=== PATIENT | female | born 1970 | race Caucasian/White ===

== ENCOUNTER 2016-07-27 19:17 | Inpatient (IN) | payer OTHER ==
[~2016-07-27] VITALS: Ht 165.1 cm; Wt 53.5 kg
[~2016-07-27 19:17] MED LIST: COREG3.125 MG PO; Gabapentin PO; KEPPRA500 MG PO; REQUIP XL6 MG PO; SEROQUEL100 MG PO; XANAX0.5 M1 PO
--- NOTE | 2016-07-27 19:17 | NUR ---
Patient was BIBA at this time.
[2016-07-27 19:26] VITALS: BP 104/70
--- NOTE | 2016-07-27 19:33 | NUR ---
Dr. Jean evaluating patient
--- NOTE | 2016-07-27 19:42 | NUR ---
PT [facility] BLS. TAKEN TO BED 8
--- NOTE | 2016-07-27 19:42 | NUR ---
PT IS 45/F BIBA TO ED WITH C/O 2 EPISODES OF TONIC CLONIC SEIZURE, FELL ON GROUND WITH NECK ABD BACK PAIN, NS 200MLS WAS GIVEN ENROUTE. PT STATES MED HX OF MS, SEIZURES, PACEMAKER. DENIES N/V/D; SKIN IS PINK/WARM/DRY; AAOX4 LUNGS CLEAR BL; HR EVEN AND REGULAR; PT DENIES ANY FEVER, CP, SOB, OR COUGH AT THIS TIME; PATIENT STATES PAIN OF 10/10 AT THIS TIME; VSS; PATIENT POSITIONED FOR COMFORT; HOB ELEVATED; BEDRAILS UP X2; BED DOWN. ER MD MADE AWARE OF PT STATUS.
--- NOTE | 2016-07-27 19:46 | NUR ---
Dr. Jean evaluating patient at bedside.
[2016-07-27] MEDS ORDERED: MORPHINE SULFATE 2 MG/ML SYR IVP ONE (19:55)
[2016-07-27] MEDS ORDERED: HYDROmorphone 1 MG/ML AMP IVP ONE ×2 (21:05→23:15)
--- NOTE | 2016-07-27 21:08 | NUR ---
PATIENT TAKEN OFF UNIT TO X-RAY. Addendum: 07/27/16 at [address] NOT X-RAY
--- NOTE | 2016-07-27 21:19 | NUR ---
PT RETURN FROM CT
--- NOTE | 2016-07-27 23:05 | NUR ---
PT RESTING IN BED. NO SOB NOTED. WILL CONTINUE TO MONITOR.
[2016-07-27] MEDS ORDERED: ONDANSETRON 4 MG/2 ML VIAL IVP PRN (23:50)
[2016-07-27] MEDS ORDERED: DOCUSATE SODIUM 100 MG GELCAP PO PRN (23:50)
[2016-07-27] MEDS ORDERED: ACETAMINOPHEN 325 MG TAB PO PRN (23:50)
[2016-07-27] MEDS ORDERED: MORPHINE SULFATE 2 MG/ML SYR IVP PRN (23:50)
[2016-07-27] MEDS ORDERED: ALPRAZolam 0.5 MG TAB PO PRN (23:55)
[2016-07-27] MEDS: CARVEDILOL 3.125 MG TAB PO SCH (23:55)
[2016-07-27] MEDS ORDERED: ROPINIROLE HCL 6 MG PO SCH (23:55)
[2016-07-27] MEDS ORDERED: POTASSIUM CHLORIDE 10 MEQ TABER PO SCH (23:55)
[2016-07-27] MEDS ORDERED: levETIRAcetam 500 MG TAB PO SCH (23:55)
[2016-07-27] MEDS ORDERED: LORazepam 2 MG/ML VIAL IVP PRN (23:55)
[2016-07-28] VITALS (7 sets, daily range): BP systolic 81–104; BP diastolic 50–72
[2016-07-28] MEDS ORDERED: HYDROmorphone 1 MG/ML AMP IVP PRN
--- NOTE | 2016-07-28 00:20 | NUR ---
Patient will be admitted to care of DR ABBOTT. Admited to TELE. Will go to room 120A. Belongings list completed. Report to WILLA GARCIA.
--- NOTE | 2016-07-28 00:30 | NUR ---
RECEIVED REPORT FROM ED RN FOR CONTINUITY OF CARE. 45 Y.O.FEMALE WITH DX: BREAKTHROUGH SEIZURES BROUGHT TO UNIT IN STABLE CONDITION. PATIENT IS A&OX4 BUT TIRED FALLS IN AND OUT OF SLEEP. NO S/S OF RESPIRATORY DISTRESS NOTED ON ROOM AIR. PATIENT DENIES PAIN AT THIS TIME. SHIFT ASSESSMENT DONE, VS TAKEN, STABLE. SKIN INTACT. WRISTBANDS APPLIED. IV TO LT FA PATENT AND FLUSHED. SAFETY/ FALL/SEIZURE PRECAUTIONS IMPLEMENTED. ORIENTED TO ROOM AND PLACED CALL LIGHT WITHIN REACH. WILL CONTINUE TO MONITOR.
[2016-07-28] MEDS ORDERED: QUEtiapine FUMARATE 100 MG TAB ONE (01:26)
--- NOTE | 2016-07-28 01:30 | NUR ---
PT DROWSY, EXPLAINED MEDICATIONS TO PATIENT ORDERED, UNABLE TO TAKE AT THIS TIME. PLACED CALL LIGHT WITHIN REACH. WILL CONTINUE TO MONITOR.
[2016-07-28] MEDS: QUEtiapine FUMARATE 100 MG TAB PO SCH ×2 (03:28→20:19)
--- NOTE | 2016-07-28 03:28 | NUR ---
PT AWAKE, ABLE TO TAKE MEDICATIONS, TOLERATED WELL. PT C/O PAIN, MEDICATED PER MD ORDER. VS STABLE, CALL LIGHT WITHIN REACH. WILL CONTINUE TO MONITOR.
[2016-07-28] MEDS: GABAPENTIN 300 MG CAP PO SCH ×3 (05:04→20:18)
--- NOTE | 2016-07-28 06:00 | NUR ---
PATIENT RESTING IN BED. NO S/S OF DISTRESS OR DISCOMFORT NOTED. WILL CONTINUE TO MONITOR.
--- NOTE | 2016-07-28 07:26 | NUR ---
ENDORSED PATIENT TO DAY RN FOR CONTINUITY OF CARE, PATIENT IS IN STABLE CONDITION.
--- NOTE | 2016-07-28 07:27 | NUR ---
RECEIVED PT IN BED. ASLEEP. AROUSABLE TO VOICE. ALERT ORIENTED X4. NO SOB NOTED AT THIS TIME. PT ON BEDREST. POSITIVE BOWEL SOUNDS NOTED ON FOUR QUADRANTS. SAFETY PRECAUTION IN PLACE. CALL LIGHT WITHIN REACH.
[2016-07-28] MEDS: CARVEDILOL 3.125 MG TAB PO SCH ×2 (08:56→20:03)
[2016-07-28] MEDS: levETIRAcetam 100 MG/ML ORASYR PO SCH ×2 (09:00→20:19)
[2016-07-28] MEDS ORDERED: rOPINIRole 1 MG TAB PO SCH (10:00)
--- NOTE | 2016-07-28 10:44 | NUR ---
DR MARTIN MADE AWARE OF PT COMPLAINT OF BACK PAIN, 09/09 BUT CHECKED BLOOD PRESSURE AT 89/52, SO PREVIOUSLY ORDERED MORPHINE NOT GIVEN DUE TO BLOOD PRESSURE MIGHT DROP SOME MORE. NEW ORDER FOR PAIN ORDERED BY AND CARRIED OUT. Addendum: 07/28/16 at 1046 by Neelam Liu RN ADDITIONAL BP 89/52, NV 65
[2016-07-28] MEDS: HYDROcodone/APAP 7.5/325 MG 1 TAB PO PRN (11:00)
[2016-07-28] MEDS: METHOCARBAMOL 500 MG TAB PO SCH ×3 (12:24→20:18)
[2016-07-28] MEDS: rOPINIRole 1 MG TAB PO SCH ×2 (12:26→16:47)
--- NOTE | 2016-07-28 13:00 | NUR ---
PT WANTED TO USE THE BEDPAN. ASSISTED PT IN USING THE BED STUBBS. PT COMPLAINED OF NOT BEING ABLE TO VOID. PALPATED BLADDER DISTENSION NOTED. SCANNED BLADDER AT [address] ENRIQUEZ AWARE. WITH ORDERS MADE AND CARRIED OUT. WENT TO SEE PT PER PT REQUEST.
--- NOTE | 2016-07-28 13:05 | NUR ---
MD CAME TO SEE PT. PT VERBALIZED PAIN SUBSIDING WITH NEW PO NORCO PRN FOR HER BACK AND NECK PAIN.
--- NOTE | 2016-07-28 16:00 | NUR ---
PT REQUESTED MD TO SEE HER. DR VAZQUEZ CAME TO SEE PT. PT COMPLAINED THAT THE NORCO WASN'T WORKING AND ASKED ABOUT HER CONDITION. MD LET PT KNOW OF HER LATEST FINDINGS AND THE RESULT OF HER KIDNEY AND BLADDER ULTRASOUND. MADE NEW ORDERS AND CARRIED OUT.
--- NOTE | 2016-07-28 18:19 | NUR ---
DR VAZQUEZ AWARE OR LATEST BLADDER AND KIDNEY ULTRASOUND REPORT, ALSO AWARE THAT PT DIDN'T HAVE BLADDER OUTPUT ON SHIFT. ENCOURAGED PT TO DRINK FLUIDS TOLERATED.
[2016-07-28] MEDS: KETOROLAC 15 MG/ML VIAL IVP PRN (18:27)
[2016-07-28] MEDS ORDERED: NACL 0.9% 1,000 ML IV SCH (19:00)
--- NOTE | 2016-07-28 19:31 | NUR ---
PT ASLEEP. AROUSABLE TO VOICE. NO SOB NOTED. RADIOLOGIST STAFF CAME TO SEE PT FOR THE XRAY ORDER. ENDORSED TO CONTACT WORKER FOR CONTINUITY OF CARE. PT ON STABLE CONDITION.
--- NOTE | 2016-07-28 19:32 | NUR ---
RECEIVED REPORT FROM DAY RN FOR CONTINUITY OF CARE. PATIENT IS A&OX4, DISCUSSED PLAN OF CARE WITH PATIENT ABLE TO VERBALIZE UNDERSTANDING, REINFORCEMENT NEEDED. SHIFT ASSESSMENT DONE, VS TAKEN, STABLE AT THIS TIME. NO S/S OF RESPIRATORY DISTRESS NOTED ON ROOM AIR. PATIENT DENIES PAIN AT THIS TIME. IV TO LT FA 22 GAUGE PATENT AND FLUSHED. ASSISTED PT TO BEDPAN BUT COULD NOT VOID. SAFETY/FALL PRECAUTIONS ENFORCED. CALL LIGHT WITHIN REACH. WILL CONTINUE TO MONITOR.
--- NOTE | 2016-07-28 19:36 | NUR ---
PATIENT TAKEN OFF UNIT TO XRAY, IN STABLE CONDITION.
--- NOTE | 2016-07-28 20:15 | NUR ---
PATIENT RETURNED, PROVIDED FOOD AND DRINK PER PT REQUEST.
--- NOTE | 2016-07-28 20:19 | NUR ---
DUE MEDICATIONS ADMINISTERED, TOLERATED WELL. PATIENT NOW RESTING IN BED. WILL CONTINUE TO MONITOR.
--- NOTE | 2016-07-28 22:00 | NUR ---
PATIENT HAD URGENCY TO URINATE, ASSISTED TO BEDPAN, 500 ML DARK YELLOW URINE NOTED. URINE SAMPLE COLLECTED AND SENT TO LAB. PATIENT PERFORMED SYDNEY CARE AND MADE COMFORTABLE. WILL CONTINUE TO MONITOR.
[2016-07-29] VITALS: BP 91/62
--- NOTE | 2016-07-29 | NUR ---
VS TAKEN. SAFETY PRECAUTIONS ENFORCED. CALL LIGHT WITHIN REACH, WILL CONTINUE TO MONITOR.
--- NOTE | 2016-07-29 01:49 | NUR ---
PT SLEEPING AT THIS TIME, PATIENT AWAKES EASILY. NO S/S OF DISTRESS NOTED, WILL CONTINUE TO MONITOR,
[2016-07-29] MEDS: KETOROLAC 15 MG/ML VIAL IVP PRN (03:17)
--- NOTE | 2016-07-29 03:17 | NUR ---
PT C/O PAIN, VS TAKEN, MEDICATED PER MD ORDER. ASSISTED PATIENT TO USE BEDPAN, 300 ML DARK YELLOW URINE NOTED. WILL CONTINUE TO MONITOR.
[2016-07-29 04:00] VITALS: BP 88/55
[2016-07-29] MEDS: GABAPENTIN 300 MG CAP PO SCH (05:31)
--- NOTE | 2016-07-29 06:00 | NUR ---
PATIENT RESTING IN BED, NO S/S OF DISTRESS OR DISCOMFORT NOTED. WILL CONTINUE TO MONITOR.
[2016-07-29] MEDS: HYDROcodone/APAP 7.5/325 MG 1 TAB PO PRN (06:42)
--- NOTE | 2016-07-29 06:42 | NUR ---
PT C/O PAIN, MEDICATED PER MD ORDER, VS STABLE. CALL LIGHT WITHIN REACH.
--- NOTE | 2016-07-29 07:20 | NUR ---
ENDORSED PATIENT TO DAY RN FOR CONTINUITY OF CARE, PATIENT IS IN STABLE CONDITION.
--- NOTE | 2016-07-29 07:27 | NUR ---
RECEIVED PT IN BED, AWAKE, ALERT, ORIENTED X4. NO SOB NOTED. DENIES ANY PAIN OR DISCOMFORT AT THIS TIME. ASSISTED PT CHANGING HER GOWN. PT WAS ABLE TO STAND AT BED SIDE WITH ASSIST. PT VERBALIZED SHE FEELS BETTER TODAY AND ABLE TO MOVE HER LEGS THAN YESTERDAY. POSITIVE BOWEL SOUNDS NOTED ON FOUR QUADRANTS. DENIES ANY PROBLEM WITH BOWEL OR BLADDER ELIMINATION AT THIS TIME. SAFETY PRECAUTION IN PLACE. CALL LIGHT WITHIN REACH.
[2016-07-29 08:00] VITALS: BP 83/48
--- NOTE | 2016-07-29 08:00 | NUR ---
DR. ABBOTT CAME TO SEE PT.
--- NOTE | 2016-07-29 08:39 | NUR ---
PT WANTS TO SIGN AMA. PT VERBALIZED THAT ITS HER SON'S BIRTHDAY AND SHE WANTED TO GO HOME NOW. MD MADE AWARE. PT SIGNED AMA FORM. ARMBAND REMOVED. IV CANNULA REMOVED AND INTACT. TELEBOX REMOVED. PT WALKED OUT OF THE HOSPITAL WITH CAREGIVER.
[2016-07-29] MEDS ORDERED: HYDROmorphone 1 MG/ML AMP IVP PRN (08:48)
[2016-07-29] MEDS ORDERED: MACROBID100 M1 PO (08:59)
[2016-07-29] MEDS ORDERED: METHOCARBAMOL 500 MG TAB PO SCH (09:00)
[2016-07-29] MEDS ORDERED: rOPINIRole 1 MG TAB PO SCH (09:00)
--- NOTE | 2016-07-30 10:04 | NUR ---
PER GIAN, CHIP PERSON FAX RETRO REVIEW TO [facility]. FAXED DISCHARGE SUMMARY, H&P AND ER REPORT TO [facility] AT [phone] PHONE [phone]
== END 2016-07-29 08:35 | disposition left against medical advice (07) | DRG 58 ==
LOC: MED 19:17 → MTU 23:50
PROVIDERS: ADMIT Family Medicine; ATTEND Family Medicine
DX: G35 Multiple sclerosis (principal); N17.0 Acute kidney failure with tubular necrosis; E43 Unspecified severe protein-calorie malnutrition; N39.0 Urinary tract infection, site not specified; Z68.1 Body mass index [BMI] 19.9 or less, adult; G40.909 Epilepsy, unspecified, not intractable, without status epilepticus; D50.9 Iron deficiency anemia, unspecified; F19.10 Other psychoactive substance abuse, uncomplicated; F41.9 Anxiety disorder, unspecified; Z53.29 Procedure and treatment not carried out because of patient's decision for other reasons; E83.51 Hypocalcemia; I25.10 Atherosclerotic heart disease of native coronary artery without angina pectoris; W18.39XA Other fall on same level, initial encounter; F17.210 Nicotine dependence, cigarettes, uncomplicated; Z53.21 Procedure and treatment not carried out due to patient leaving prior to being seen by health care provider; Z90.710 Acquired absence of both cervix and uterus; Z95.0 Presence of cardiac pacemaker; Z88.6 Allergy status to analgesic agent; Z79.899 Other long term (current) drug therapy; Z71.6 Tobacco abuse counseling; Y93.89 Activity, other specified; Y92.090 Kitchen in other non-institutional residence as the place of occurrence of the external cause; Y99.8 Other external cause status; Z83.3 Family history of diabetes mellitus; Z80.1 Family history of malignant neoplasm of trachea, bronchus and lung

== ENCOUNTER 2016-10-20 22:36 | Emergency (ER) | payer OTHER ==
[~2016-10-20] VITALS: Ht 167.6 cm; Wt 61.2 kg
[~2016-10-20 22:36] MED LIST changes: +ALPR0.5T2 PO; +CARV3.12 PO; -COREG3.125 MG PO; +KEP500 PO; -KEPPRA500 MG PO; +NITR100C7 PO; +QUET100T PO; -REQUIP XL6 MG PO; -SEROQUEL100 MG PO; -XANAX0.5 M1 PO; +[UNRECOGNIZED DRUG - CODE] PO
--- NOTE | 2016-10-20 22:48 | NUR ---
BIBA TO ER BED 4
[2016-10-20 23:00] VITALS: BP 93/65
[2016-10-20] MEDS ORDERED: HYDROcodone/APAP 5/325 MG 1 TAB TAB PO ONE (23:15)
[2016-10-20] MEDS ORDERED: LORazepam 1 MG TAB PO ONE (23:15)
--- NOTE | 2016-10-20 23:15 | NUR ---
PT. REFUSES CXR, ER MD MADE AWARE.
--- NOTE | 2016-10-20 23:15 | NUR ---
Patient being evaluated by physician at bedside.
--- NOTE | 2016-10-20 23:26 | NUR ---
45Y/F PT. PRESENT TO ED FOR PREBOOK. PT. STATES HAVING CHEST PAIN X 1 DAY. HX. MS, BRADYCARDIA STATES ON PACE MAKER, ANXIETY. AAO X4, UNABLE TO AMBULATE AT THIS TIME. RESPIRTAIONS ROOM AIR, EVEN AND UNLABORED. BL LUNGS CLEAR. SKIN WARM AND DRY/PINK. C/O CP 12/10. VSS, ER MADE AWARE OF PT. STAUS.
[2016-10-20 23:29] LABS: BASOPHILS # (AUTO) 0.3 K/uL (0.00-0.22); BASOPHILS % (AUTO) 3.2 % (0.0-2.0); EOSINOPHILS # (AUTO) 0.2 K/uL (0-0.4); EOSINOPHILS % (AUTO) 1.7 % (0.0-4.0); HEMATOCRIT 28.5 % (36-48); HEMOGLOBIN 8.8 g/dL (12.0-16.0); LYMPHOCYTES # (AUTO) 2.1 K/uL (2.5-16.5); LYMPHOCYTES % (AUTO) 22.8 % (20.5-51.1); MEAN CORPUSCULAR HEMOGLOBIN 23 pg (27-31); MEAN CORPUSCULAR HGB CONC 31 g/dL (33-37); MEAN CORPUSCULAR VOLUME 76 fL (80-94); MONOCYTES # (AUTO) 0.4 K/uL (0.8-1.0); MONOCYTES % (AUTO) 4.8 % (1.7-9.3); NEUTROPHILS # (AUTO) 6.2 K/uL (1.8-7.7); NEUTROPHILS % (AUTO) 67.5 % (42.2-75.2); PLATELET COUNT (AUTO) 280 K/uL (140-450); RED BLOOD CELL COUNT(AUTO) 3.75 MIL/uL (4.20-5.40); WHITE BLOOD COUNT (AUTO) 9.2 K/uL (4.8-10.8)
[2016-10-20 23:40] LABS: RED CELL DISTRIBUTION WIDTH 20.9 % (11.6-13.7)
[2016-10-20 23:47] LABS: ANION GAP 12.4 (8-16); CARBON DIOXIDE 24.9 mmol/L (21-32); CREATININE 0.9 mg/dL (0.6-1.3); POTASSIUM 3.3 mmol/L (3.5-5.1); TOTAL BILIRUBIN 0.2 mg/dL (0.0-1.0)
[2016-10-21] MEDS ORDERED: POTASSIUM CHLORIDE 20% 40 MEQ/15 ML UDC PO ONE (00:10)
--- NOTE | 2016-10-21 00:22 | NUR ---
Patient discharged with v/s stable. Written and verbal after care instructions given and explained. Patient verbalized understanding. Ambulatory with steady gait. All questions addressed prior to discharge. Advised to follow up with PMD.
--- NOTE | 2016-10-21 00:22 | NUR ---
PATIENT BIB [employer]. PATIENT EXAMINED BY DR. NROMAN. PATIENT MEDICALLY CLEARED AND RELEASED IN CUSTODY IN STABLE CONDITION. ORIGINAL PRE-BOOK FORM GIVEN TO OFFICER Francesca LEARY.
[2016-10-21 00:23] VITALS: BP 100/60
== END 2016-10-21 00:23 ==
LOC: MED 22:36
DX: Z02.89 Encounter for other administrative examinations (principal); E87.6 Hypokalemia; Z88.8 Allergy status to other drugs, medicaments and biological substances; Z79.899 Other long term (current) drug therapy; Z95.0 Presence of cardiac pacemaker
CPT/HCPCS: 36415; 80053; 81002; 81025; 83880; 84484; 85025; 93005; 99285; G0482

== ENCOUNTER 2017-05-15 18:58 | Inpatient (IN) | payer OTHER ==
[~2017-05-15] VITALS: Ht 152.4 cm; Wt 63.0 kg
[~2017-05-15 18:58] MED LIST changes: -NITR100C7 PO
[2017-05-15 19:01] VITALS: BP 118/79
--- NOTE | 2017-05-15 19:17 | NUR ---
PATIENT BIBA TO BED 4.
--- NOTE | 2017-05-15 20:14 | NUR ---
46 Y/F PT. BIB EMS FROM HOME FOR SEIZURE AND THEN ONSET OF CHEST PAIN. AWAKE AND ALERT ON ARRIVAL. HX. MS, SEIZURE, ON PACE MAKER. AAOX 4, UNABLE TO AMBULATE DUE TO MS, PT. STATES USE WALKER AT HOME. REPSIRTAIONS ROOM AIR, EVEN AND UNLABORED. SKIN WARM AND DRY. C/O CP AND BODY PAIN 11/10. VSS, ER MADE AWARE OF PT. STATUS.
[2017-05-15 21:05] LABS: BASOPHILS # (AUTO) 0.3 K/uL (0.00-0.22); BASOPHILS % (AUTO) 2.3 % (0.0-2.0); EOSINOPHILS # (AUTO) 0.1 K/uL (0-0.4); EOSINOPHILS % (AUTO) 0.9 % (0.0-4.0); HEMATOCRIT 29.5 % (36-48); HEMOGLOBIN 9.7 g/dL (12.0-16.0); LYMPHOCYTES # (AUTO) 2.4 K/uL (2.5-16.5); MEAN CORPUSCULAR HEMOGLOBIN 24 pg (27-31); MEAN CORPUSCULAR HGB CONC 33 g/dL (33-37); MEAN CORPUSCULAR VOLUME 73 fL (80-94); MONOCYTES # (AUTO) 0.7 K/uL (0.8-1.0); MONOCYTES % (AUTO) 5.9 % (1.7-9.3); NEUTROPHILS # (AUTO) 8.2 K/uL (1.8-7.7); NEUTROPHILS % (AUTO) 69.9 % (42.2-75.2); PLATELET COUNT (AUTO) 221 K/uL (140-450); RED BLOOD CELL COUNT(AUTO) 4.05 MIL/uL (4.20-5.40); RED CELL DISTRIBUTION WIDTH 19.3 % (11.6-13.7); WHITE BLOOD COUNT (AUTO) 11.7 K/uL (4.8-10.8)
[2017-05-15 21:19] LABS: ANION GAP 14.2 (8-16); CARBON DIOXIDE 22.1 mmol/L (21-32); CREATININE 0.7 mg/dL (0.6-1.3); POTASSIUM 3.3 mmol/L (3.5-5.1)
[2017-05-15 21:24] LABS: ALBUMIN 2.9 g/dL (3.4-5.0); TOTAL BILIRUBIN 0.3 mg/dL (0.0-1.0)
[2017-05-15] MEDS ORDERED: MORPHINE SULFATE 4 MG/ML SYR IVP ONE (21:40)
--- NOTE | 2017-05-15 22:01 | NUR ---
IV 20GA RT HAND DONE, IVP PAIN MEDS GIVEN-NADR
[2017-05-15] MEDS ORDERED: ONDANSETRON 4 MG/2 ML VIAL IVP PRN (22:05)
[2017-05-15] MEDS ORDERED: MORPHINE SULFATE 2 MG/ML SYR IVP PRN (22:05)
[2017-05-15] MEDS ORDERED: LORazepam 2 MG/ML VIAL IVP PRN (22:05)
[2017-05-15] MEDS ORDERED: ACETAMINOPHEN 325 MG TAB PO PRN (22:05)
[2017-05-15 22:55] VITALS: BP 90/43
--- NOTE | 2017-05-15 22:55 | NUR ---
ADMITTED A 46F FROM ER. CAME BY KARISSA DUE TO CHEST PAIN AND BODY PAIN. HAD EPISODE OF SEIZURE AT HOME . AWAKE ,ALERT AND ORIENTED X4. ON TELE MONITOR. HAS PACEMAKER. BEDREST. WITH HL ON THE RT HAND #20. CLEAR AND PATENT. HAS GENERALIZED WEAKNESS. AT HOME AMBULATE WITH WALKER. SKIN ASSESSMENT DONE. INTACT EXCEPT WITH OLD SCRATCHES/SCABS ON BILATERAL LOWER LEG. SIDE RAILS ARE PADDED FOR SEIZURE PRECAUTIONS. ORIENTED TO HOSPITAL ROUTINES. BED ON LOW POSITION. FREQUENT ROUNDS NEEDED. CALL LIGHT PLACED WITHIN EASY REACH. PT HAS HISTORY OF MDRO ON URINE. INITIATE CONTACT ISOLATION . WILL FOLLOW UP ADMIT ORDER.
--- NOTE | 2017-05-16 01:00 | NUR ---
PT ASLEEP. NO S/S OF ANY DISTRESS NOR DISCOMFORT NOTED. WILL CONTINUE TO MONITOR.
[2017-05-16 04:03] VITALS: BP 93/50
[2017-05-16] MEDS: HYDROcodone/APAP 5/325 MG 1 TAB TAB PO PRN ×5 (04:12→23:45)
--- NOTE | 2017-05-16 04:12 | NUR ---
AWAKE. C/O PAIN ON THE LOWER BACK. MEDICATED WITH NORCO. ALSO VOIDED IN BEDPAN.
--- NOTE | 2017-05-16 04:15 | NUR ---
PT REQUESTED FRO SOME SANDWICH. ONLY FINISHED A LITTLE BIT.
--- NOTE | 2017-05-16 06:32 | NUR ---
PATIENT HAS BEEN SCREENED AND CATEGORIZED MODERATE NUTRITION RISK. PATIENT WILL BE SEEN WITHIN 3-5 DAYS OF ADMISSION. 05/17/17-05/19/17 BRIAN LEWIS MS, RDN
[2017-05-16 06:51] LABS: BASOPHILS # (AUTO) 0.3 K/uL (0.00-0.22); BASOPHILS % (AUTO) 4.9 % (0.0-2.0); EOSINOPHILS # (AUTO) 0.3 K/uL (0-0.4); EOSINOPHILS % (AUTO) 4.9 % (0.0-4.0); HEMOGLOBIN 9.4 g/dL (12.0-16.0); LYMPHOCYTES # (AUTO) 2.2 K/uL (2.5-16.5); LYMPHOCYTES % (AUTO) 35.9 % (20.5-51.1); MEAN CORPUSCULAR HEMOGLOBIN 24 pg (27-31); MEAN CORPUSCULAR HGB CONC 32 g/dL (33-37); MEAN CORPUSCULAR VOLUME 76 fL (80-94); MONOCYTES # (AUTO) 0.5 K/uL (0.8-1.0); MONOCYTES % (AUTO) 8.5 % (1.7-9.3); NEUTROPHILS # (AUTO) 2.8 K/uL (1.8-7.7); NEUTROPHILS % (AUTO) 45.8 % (42.2-75.2); PLATELET COUNT (AUTO) 211 K/uL (140-450); RED BLOOD CELL COUNT(AUTO) 3.93 MIL/uL (4.20-5.40); WHITE BLOOD COUNT (AUTO) 6.1 K/uL (4.8-10.8)
--- NOTE | 2017-05-16 07:10 | NUR ---
NO SEIZURE ACTIVITY NOTED DURING THE NIGHT. ENDORSED PT IN STABLE TO AM NURSE.
[2017-05-16 07:12] LABS: ANION GAP 11.7 (8-16); CARBON DIOXIDE 24.8 mmol/L (21-32); CREATININE 0.7 mg/dL (0.6-1.3); POTASSIUM 3.5 mmol/L (3.5-5.1)
[2017-05-16 07:14] LABS: MAGNESIUM 1.7 mg/dL (1.8-2.4); PHOSPHORUS 3.9 mg/dL (2.5-4.9)
--- NOTE | 2017-05-16 07:30 | NUR ---
RECEIVED PT ON BED AAOX4. NO SOB NOTED. NO C/O PAIN AT THIS TIME. IV TO RT HAND PATENT AND INTACT. CHEST CLEAR, ABDOMEN SOFT, BOWEL SOUNDS PRESENT. NO EDEMA NOTED. INSTRUCTED PT TO CALL FOR ASSISTANCE, CALL LIGHT WITHIN REACH, PT VERBALIZED UNDERSTANDING.
[2017-05-16 08:00] VITALS: BP 94/52
[2017-05-16 08:14] LABS: CREATINE KINASE MB 0.3 ng/mL (0-3.6)
[2017-05-16] MEDS ORDERED: ROPINIROLE HCL 6 MG PO SCH (09:00)
[2017-05-16] MEDS: GABAPENTIN 300 MG CAP PO SCH ×3 (09:12→18:12)
[2017-05-16] MEDS: levETIRAcetam 500 MG TAB PO SCH ×2 (09:12→20:34)
[2017-05-16] MEDS ORDERED: rOPINIRole 1 MG TAB PO SCH (11:12)
--- NOTE | 2017-05-16 11:46 | NUR ---
PATRICK NOTE PER REIMBURSEMENT ANALYST GIAN, REVIEWS SHOULD ONLY BE SENT TO [facility]. RECEIVED CALL FROM [facility] PATRICK PARISI PH# [phone] AND SHE SAID TO FAX REVIEW TO [phone]. PATRICK PARISI ALSO STATED THAT THEIR WEEKEND COVERAGE IS # [phone] FAX# [phone]. INITIAL REVIEW FAXED TO [facility] [phone] ATTN: PATRICK PARISI PH# [phone].
[2017-05-16 12:00] VITALS: BP 93/53
--- NOTE | 2017-05-16 15:30 | NUR ---
PT SEEN BY Abdulaziz SMITH WITH NEW ORDERS.
[2017-05-16 16:00] VITALS: BP 91/56
[2017-05-16 16:42] LABS: CREATINE KINASE MB 0.3 ng/mL (0-3.6)
[2017-05-16] MEDS ORDERED: MAG SULF 2000 MG/WATER PREMIX 50 ML IV SCH (18:00)
--- NOTE | 2017-05-16 18:00 | NUR ---
PT SEEN BY DR. CLEMENT WITH NEW ORDERS.
--- NOTE | 2017-05-16 18:10 | NUR ---
PT ACCIDENTALLY PULLED OUT PRESET IV. RESTARTED A NEW LINE ON LEFT HAND WITH GAUGE 22.
[2017-05-16] MEDS: clonazePAM 0.5 MG TAB PO PRN (18:13)
[2017-05-16] MEDS ORDERED: VALPROATE SODIUM 1,000 MG in NACL 0.9% 100 ML IV SCH (18:30)
--- NOTE | 2017-05-16 19:00 | NUR ---
DEPACON IVPB NOT GIVEN YET, MAG RIDER STILL ON GOING. PT AWAKE. NO SOB NOTED. NO COMPLAINTS MADE. WILL ENDORSE TO NEXT SHIFT NURSE FOR CONTINUITY OF CARE.
--- NOTE | 2017-05-16 19:25 | NUR ---
RECEIVED REPORT FROM DAY SHIFT NURSE. AAOX4. IV TO LEFT HAND #22G, PATENT AND INTACT. NO C/O PAIN AT THIS TIME. PT ON ROOM AIR. DISCUSSED PLAN OF CARE, PT VERBALIZED UNDERSTANDING. SAFETY PRECAUTION IN PLACE. CALL LIGHT WITHIN REACH.
[2017-05-16 20:00] VITALS: BP 86/45
[2017-05-16] MEDS ORDERED: NACL 0.9% 250 ML IV ONE ×2 (20:10→21:45)
--- NOTE | 2017-05-16 20:10 | NUR ---
DR. Polina MELENDEZ IS HERE TO SEE PT. BP 86/45. DR. MELENDEZ ORDERED NS 250 ML BOLUS. MD ORDERED TO GIVE ANOTHER NS 250 ML BOLUS IF BP STILL LOW. ORDER NOTED AND WILL CARRY OUT.
[2017-05-16] MEDS ORDERED: QUEtiapine FUMARATE 100 MG TAB PO SCH (21:00)
--- NOTE | 2017-05-16 21:45 | NUR ---
PT'S BP 89/51, HR 62. NO DISTRESS NOTED. WILL GIVE ANOTHER NS 250ML BOLUS ORDERED.
--- NOTE | 2017-05-16 22:09 | NUR ---
LEFT A VOICE MESSAGE FOR ROBERT, PT'S CAREGIVER TO INFORM HER THAT PT WILL BE DISCHARGED TOMORROW AT 0600.
[2017-05-16 22:50] VITALS: BP 92/53
--- NOTE | 2017-05-16 22:50 | NUR ---
PT'S BP 92/53. CALLED DR. Polina MELENDEZ. STATED BP IS OKAY. MD ORDERED TO GIVE NS 250ML BOLUS IF SBP<90.
[2017-05-17] VITALS: BP 114/71
--- NOTE | 2017-05-17 00:25 | NUR ---
SEEN PATIENT SLEEPING ON BED. PATIENT EASILY AROUSABLE. BED IN LOW POSITION, CALL LIGHTS WITHIN REACH. NO S/S OF DISTRESS NOTED AT THIS TIME.
--- NOTE | 2017-05-17 02:25 | NUR ---
SEEN PATIENT ASLEEP ON BED. PATIENT EASILY AROUSABLE. BED IN LOW POSITION, CALL LIGHTS WITHIN REACH. NO S/S DISTRESS NOTED AT HIS TIME.
[2017-05-17 04:00] VITALS: BP 91/51
--- NOTE | 2017-05-17 04:15 | NUR ---
PT SLEEPING BUT EASILY AROUSABLE. NO SEIZURE ACTIVITY NOTED. NO S/S O OF PAIN. SEIZURE AND SAFETY PRECAUTION IN PLACE. CALL LIGHT WITHIN REACH.
[2017-05-17] MEDS: clonazePAM 0.5 MG TAB PO PRN (06:19)
[2017-05-17] MEDS: HYDROcodone/APAP 5/325 MG 1 TAB TAB PO PRN (06:19)
[2017-05-17 06:20] LABS: BASOPHILS # (AUTO) 0.2 K/uL (0.00-0.22); BASOPHILS % (AUTO) 4.1 % (0.0-2.0); EOSINOPHILS # (AUTO) 0.2 K/uL (0-0.4); EOSINOPHILS % (AUTO) 4.2 % (0.0-4.0); HEMATOCRIT 31.4 % (36-48); HEMOGLOBIN 9.7 g/dL (12.0-16.0); LYMPHOCYTES % (AUTO) 35.2 % (20.5-51.1); MEAN CORPUSCULAR HEMOGLOBIN 24 pg (27-31); MEAN CORPUSCULAR HGB CONC 31 g/dL (33-37); MEAN CORPUSCULAR VOLUME 76 fL (80-94); MONOCYTES # (AUTO) 0.3 K/uL (0.8-1.0); MONOCYTES % (AUTO) 5.6 % (1.7-9.3); NEUTROPHILS # (AUTO) 2.9 K/uL (1.8-7.7); NEUTROPHILS % (AUTO) 50.9 % (42.2-75.2); PLATELET COUNT (AUTO) 224 K/uL (140-450); RED BLOOD CELL COUNT(AUTO) 4.11 MIL/uL (4.20-5.40); RED CELL DISTRIBUTION WIDTH 20.5 % (11.6-13.7); WHITE BLOOD COUNT (AUTO) 5.6 K/uL (4.8-10.8)
--- NOTE | 2017-05-17 06:21 | NUR ---
PT C/O BACK PAIN 5/10 PAIN SCALE. PT ALSO STATED SHE'S ANXIOUS. NORCO 5/325 MG TAB PO FOR PAIN AND KLONOPIN 1 MG PO FOR ANXIETY GIVEN ORDERED.
--- NOTE | 2017-05-17 06:28 | NUR ---
SPOKE WITH ROBERT, PT'S CAREGIVER. SHE STATED THAT SHE'S COMING IN 45 MINS TO BLASTING CONTRACT MINER PT. PT MADE AWARE.
[2017-05-17 06:56] LABS: ANION GAP 11.1 (8-16); CARBON DIOXIDE 23.9 mmol/L (21-32); CREATININE 0.7 mg/dL (0.6-1.3)
--- NOTE | 2017-05-17 07:10 | NUR ---
PT'S BEVELER IS HERE TO COOKING INSTRUCTOR PT. DC PAPERS SIGNED BY PT AND WAS GIVEN A COPY. IV LINE, TELE MONITOR AND ARM BAND REMOVED. PT REFUSED TO BE WHEELED OUT TO THE LOBBY. PT STATED SHE WILL JUST WALK WITH HER CAREGIVER. NO C/O PAIN. NO DISTRESS NOTED. PT IN STABLE CONDITION.
[2017-05-17] MEDS ORDERED: rOPINIRole 1 MG TAB PO SCH (09:00)
[2017-05-17] MEDS ORDERED: DIVALPROEX 500 MG TABEC PO SCH (09:00)
--- NOTE | 2017-05-22 15:18 | NUR ---
PATRICK NOTE PATRICK NICE RECEIVE VM FROM [facility] OF [facility] PH# [phone] REQUESTING FOR CLINICAL UPDATE ON ADMISSION. H&P, CONSULT AND DISCHARGE INSTRUCTIONS FAXED TO [facility] [phone] ATTN: PATRICK LOBO PH# [phone]
== END 2017-05-17 07:10 | disposition home or self-care (01) | DRG 206 ==
LOC: MED 18:58 → MMU 22:29
PROVIDERS: ADMIT Preventive Medicine Preventive Medicine/Occupational Environmental Medicine; ATTEND Preventive Medicine Preventive Medicine/Occupational Environmental Medicine
DX: M94.0 Chondrocostal junction syndrome [Tietze] (principal); E44.0 Moderate protein-calorie malnutrition; G35 Multiple sclerosis; G40.909 Epilepsy, unspecified, not intractable, without status epilepticus; F17.210 Nicotine dependence, cigarettes, uncomplicated; Z88.6 Allergy status to analgesic agent; Z95.0 Presence of cardiac pacemaker; I25.10 Atherosclerotic heart disease of native coronary artery without angina pectoris; Z83.3 Family history of diabetes mellitus; Z80.1 Family history of malignant neoplasm of trachea, bronchus and lung
CPT/HCPCS: 36415; 71045; 80048; 80053; 82550; 82553; 83735; 83880; 84100; 84484; 85025; 87081; 93005; 96374; 99285; J2270; J3475; J3490; J7030; Q0092

== ENCOUNTER 2017-05-29 13:00 | Observation (INO) | payer OTHER ==
[~2017-05-29] VITALS: Ht 152.4 cm; Wt 62.3 kg
[2017-05-29] MEDS ORDERED: AMMONIA AROMATIC 1 INHL INH ONE (13:01)
[2017-05-29 13:06] VITALS: BP 123/71
[2017-05-29] MEDS ORDERED: LORazepam 2 MG/ML VIAL IVP ONE ×2 (13:10→15:45)
[2017-05-29] MEDS ORDERED: NACL 0.9% 1,000 ML IV ONE (13:10)
[2017-05-29] MEDS ORDERED: LORazepam 2 MG/ML VIAL ONE (13:12)
--- NOTE | 2017-05-29 13:16 | NUR ---
PT. EXPERIENCED SEIZURE THAT STARTED AT 1310; GIVEN 1MG ATIVAN , WASTED 1MG/0.5ML . Addendum: 05/29/17 at 1340 by MEDMCKAY WASTED WITH WILLA SUMNER
[2017-05-29] MEDS ORDERED: KETOROLAC 30 MG/ML VIAL IVP ONE (13:20)
[2017-05-29] MEDS ORDERED: ROPI0.5T PO (13:21)
[2017-05-29] MEDS ORDERED: NAPR-54 PO (13:21)
[2017-05-29] MEDS ORDERED: QUET400T PO (13:21)
[2017-05-29] MEDS ORDERED: ESOM40EC PO (13:21)
[2017-05-29] MEDS ORDERED: LEVE1000 PO (13:21)
[2017-05-29] MEDS ORDERED: TOR15I PO (13:21)
[2017-05-29] MEDS ORDERED: FERR325E14 PO (13:21)
[2017-05-29] MEDS ORDERED: CLON1TAB1 PO (13:21)
[2017-05-29] MEDS ORDERED: LACO50TA PO (13:21)
--- NOTE | 2017-05-29 13:40 | NUR ---
PT. EXPERIENCED A SEIZURE AT 1334 WHICH LASTED ONE MINUTE. VSS, PT RESPONSIVE AND DR. CABAN NOTIFIED.
[2017-05-29 13:51] LABS: BASOPHILS # (AUTO) 0.2 K/uL (0.00-0.22); EOSINOPHILS # (AUTO) 0.2 K/uL (0-0.4); EOSINOPHILS % (AUTO) 2.9 % (0.0-4.0); HEMATOCRIT 29.4 % (36-48); HEMOGLOBIN 9.3 g/dL (12.0-16.0); LYMPHOCYTES % (AUTO) 33.3 % (20.5-51.1); MEAN CORPUSCULAR HEMOGLOBIN 24 pg (27-31); MEAN CORPUSCULAR HGB CONC 32 g/dL (33-37); MEAN CORPUSCULAR VOLUME 75.9 fL (80-94); MONOCYTES # (AUTO) 0.4 K/uL (0.8-1.0); MONOCYTES % (AUTO) 6.2 % (1.7-9.3); NEUTROPHILS # (AUTO) 3.1 K/uL (1.8-7.7); NEUTROPHILS % (AUTO) 53.6 % (42.2-75.2); PLATELET COUNT (AUTO) 339 K/uL (140-450); RED BLOOD CELL COUNT(AUTO) 3.87 MIL/uL (4.20-5.40); RED CELL DISTRIBUTION WIDTH 19.6 % (11.6-13.7); WHITE BLOOD COUNT (AUTO) 5.9 K/uL (4.8-10.8)
[2017-05-29] MEDS ORDERED: MORPHINE SULFATE 4 MG/ML SYR IVP ONE (14:30)
[2017-05-29 14:35] LABS: APPEARANCE,URINE CLEAR (CLEAR); BILIRUBIN,URINE NEGATIVE (NEGATIVE); BLOOD, URINE NEGATIVE (NEGATIVE); LEUKOCYTE ESTERASE ,URINE NEGATIVE (NEGATIVE); NITRITE, URINE NEGATIVE (NEGATIVE); UGLUCOSE NEGATIVE (NEGATIVE)
[2017-05-29 14:37] LABS: COLOR,URINE STRAW (YELLOW)
[2017-05-29] MEDS ORDERED: MORPHINE SULFATE 2 MG/ML SYR ONE (14:40)
--- NOTE | 2017-05-29 14:42 | NUR ---
1441- PT. SUFFERED FROM SEIZURE, PER DR. TAE BOSTON, AND 1MG OF ATIVAN WAS ADMINISTERED. SEIZURE CEASED AT 1442.
[2017-05-29 15:09] LABS: ANION GAP 10.7 (8-16); CARBON DIOXIDE 25.6 mmol/L (21-32); CREATININE 0.8 mg/dL (0.6-1.3); POTASSIUM 4.3 mmol/L (3.5-5.1)
[2017-05-29 15:14] LABS: ALBUMIN 2.8 g/dL (3.4-5.0); TOTAL BILIRUBIN 0.1 mg/dL (0.0-1.0)
--- NOTE | 2017-05-29 15:49 | NUR ---
PT. TAKEN FOR CT SCAN BY KRISTIN.
[2017-05-29 15:53] LABS: BARBITURATE, URINE NEG. ng/ml (NEG <=200); BENZODIAZEPINE, URINE NEG. ng/mL (NEG <=200); CANNABINOID, URINE POS. ng/mL (NEG <=50); COCAINE, URINE NEG. ng/mL (NEG <=300); OPIATE, URINE NEG. ng/mL (NEG <=2000); PHENCYCLIDINE SCREEN,URINE NEG. ng/mL (NEG <=25)
--- NOTE | 2017-05-29 15:59 | NUR ---
PT. WAS BROUGHT BACK TO BED [address] SCAN BY KRISTIN.
[2017-05-29] MEDS ORDERED: NACL 0.9% 1,000 ML IV SCH (16:14)
[2017-05-29] MEDS ORDERED: ACETAMINOPHEN 325 MG TAB PO PRN (16:15)
[2017-05-29] MEDS ORDERED: ONDANSETRON 4 MG/2 ML VIAL IM/IVP PRN (16:15)
[2017-05-29] MEDS ORDERED: DOCUSATE SODIUM 100 MG GELCAP PO PRN (16:15)
[2017-05-29] MEDS ORDERED: KETOROLAC 15 MG/ML VIAL IVP PRN (16:15)
[2017-05-29] MEDS ORDERED: CARVEDILOL 3.125 MG TAB PO PRN (16:15)
[2017-05-29] MEDS ORDERED: CLONAZEPAM 1 MG PO SCH (16:15)
[2017-05-29] MEDS ORDERED: ALPRAZolam 0.5 MG TAB PO PRN (16:15)
[2017-05-29] MEDS ORDERED: NAPROXEN 500 MG TAB PO SCH (16:15)
[2017-05-29] MEDS ORDERED: MORPHINE SULFATE 2 MG/ML SYR IVP PRN ×2 (16:15→18:00)
[2017-05-29] MEDS ORDERED: levETIRAcetam 1,000 MG in NACL 0.9% 100 ML IV ONE (16:40)
--- NOTE | 2017-05-29 16:55 | NUR ---
Patient will be admitted to care of DR PEÑA. Admited to TELE. Will go to room 112A. Belongings list completed. Report to WILLA YI
[2017-05-29] MEDS ORDERED: FERROUS SULFATE 325 MG TABEC PO SCH (17:00)
--- NOTE | 2017-05-29 17:00 | NUR ---
PATIENT ARRIVED ON UNIT VIA GURNEY FROM ER. RECEIVED REPORT FROM ER NURSE SUMAN. PATIENT ALERT AND ABLE TO VERBALIZE NEEDS. NO NOTED DELAYS RESPONDING APPROPRIATELY TO QUESTIONS. PERRLA 3MM. PATIENT WITH 22G TO RIGHT HAND. PATIENT VERBALIZING IT IS BOTHERING HER AND DOES NOT WANT IT TO BE USED. WILL CHANGES IV SITE. SKIN INTACT. LUNG SOUNDS CLEAR BOWEL SOUNDS ACTIVE. TELEMONITOR ATTACHED. DISCUSSED PLAN OF CARE WITH PATIENT AT BEDSIDE. DR DUGGAN TO BE IN LATER TO SEE PATIENT. SEIZURE AND FALL PRECAUTIONS IMPLEMENTED. CALL LIGHT WITHIN REACH. WILL CONT TO MONITOR.
[2017-05-29 17:02] LABS: BARBITURATE, URINE NEG. ng/ml (NEG <=200); BENZODIAZEPINE, URINE NEG. ng/mL (NEG <=200); CANNABINOID, URINE POS. ng/mL (NEG <=50); COCAINE, URINE NEG. ng/mL (NEG <=300); OPIATE, URINE NEG. ng/mL (NEG <=2000); PHENCYCLIDINE SCREEN,URINE NEG. ng/mL (NEG <=25)
[2017-05-29 17:08] LABS: PROTHROMBIN TIME 10.5 secs (10.8-13.4)
[2017-05-29 17:10] LABS: FREE T4 (FREE THYROXINE) 0.62 ng/dL (0.76-1.46); MAGNESIUM 1.8 mg/dL (1.8-2.4); PHOSPHORUS 3.2 mg/dL (2.5-4.9); THYROID STIMULATING HORMONE 0.7 uIU/mL (0.34-3.74)
[2017-05-29] MEDS ORDERED: LORazepam 2 MG/ML VIAL IVP PRN (17:15)
[2017-05-29] MEDS ORDERED: KETOROLAC 30 MG/ML VIAL IVP PRN (17:15)
--- NOTE | 2017-05-29 17:45 | NUR ---
STARTED NEW IV LINE AND DC OLD IV SITE TO RIGHT HAND. NEW IV SITE TO LEFT HAND 22G PATENT AND INTACT WITH IV FLUIDS OF NS @60ML/HR INFUSING. PATIENT HAD 2 SEIZURES SINCE ADMISSION TO [facility] PATIENT O2 SAY REMAINED 95% DURING SEIZURE ON ROOM AIR. PATIENT ABLE TO DIRECT EYES TO PERSON TALKING TO HER DURING SEIZURE AND HAVE SPEECH DELAY WHEN RESPONDING TO QUESTIONS. SLIGHT TREMORS TO ENTIRE BODY. LASTED APPROX 30 SECONDS. ONCE IT PASSED PATIENT ABLE TO COMMUNICATE EFFECTIVELY WITHOUT DELAY. WILL CONT TO MONITOR PT.
[2017-05-29] MEDS ORDERED: clonazePAM 0.5 MG TAB PO PRN (17:50)
[2017-05-29 18:00] VITALS: BP 109/66
--- NOTE | 2017-05-29 19:15 | NUR ---
ENDORSED REPORT TO VEHICLE PAINTER NURSE AT BEDSIDE FOR CONTINUITY OF CARE. PATIENT STABLE.
--- NOTE | 2017-05-29 19:30 | NUR ---
RECEIVED PT IN STABLE CONDITION FROM AM NURSE. AWAKE,ALERT AND ORIENTED X4. BEDREST. ON TELE MONITOR SR. SIDE RAILS ARE PADDED FOR SEIZURE PRECAUTION. SKIN INTACT. WITH IVF INFUSING WELL ON THE LT FA #20. CLEAR AND PATENT. HAS HL ON RT HAND #18. PLAN OF CARE DISCUSSED AND VERBALIZED UNDERSTANDING. BED ON LOW POSITION . FREQUENT ROUNDS NEEDED. CALL LIGHT PLACED WITHIN EASY REACH. WILL CONTINUE TO MONITOR.
[2017-05-29 20:00] VITALS: BP 96/51
[2017-05-29] MEDS: GABAPENTIN 300 MG CAP PO SCH (20:39)
[2017-05-29] MEDS: HYDROcodone/APAP 7.5/325 MG 1 TAB PO PRN (20:41)
[2017-05-29] MEDS ORDERED: rOPINIRole 0.25 MG TAB PO SCH (21:00)
[2017-05-29] MEDS ORDERED: CARVEDILOL 3.125 MG TAB PO SCH (21:00)
[2017-05-29] MEDS ORDERED: QUEtiapine FUMARATE 100 MG TAB PO SCH (21:00)
[2017-05-29] MEDS ORDERED: LACOSAMIDE 50 MG PO SCH (21:00)
[2017-05-29] MEDS ORDERED: levETIRAcetam 500 MG TAB PO SCH (21:00)
[2017-05-29] MEDS ORDERED: GABAPENTIN NEURONTIN PO SCH (21:00)
[2017-05-29] MEDS ORDERED: levETIRAcetam 1,000 MG in NACL 0.9% 100 ML IV SCH (21:00)
--- NOTE | 2017-05-29 22:00 | NUR ---
PT SLEEPING AT THIS TIME. NO SEIZURE ACTIVITY NOTED. WILL CONTINUE TO MONITOR.
--- NOTE | 2017-05-29 23:00 | NUR ---
PT STILL ASLEEP. NO S/S OF ANY DISCOMFORT NOTED.
[2017-05-30 00:30] VITALS: BP 82/46
--- NOTE | 2017-05-30 01:09 | NUR ---
DR. CUNNINGHAM MADE AWARE ABOUT THE BLOOD PRESSURE LOW 82/46. ALTHOUGH PT IS ASYMPTOMATIC. BED POSITIONED TO [place]. WILL CHECK BP AFTER FEW MINUTES.
[2017-05-30] MEDS ORDERED: NACL 0.9% 500 ML IV ONE (02:10)
--- NOTE | 2017-05-30 02:20 | NUR ---
BLOOD PRESSURE STILL LOW 87/40. PT ASYMPTOMATIC. DR. CUNNINGHAM MADE AWARE . WITH ORDERS TO GIVE IV NS 500 ML BOLUS.
[2017-05-30 04:22] VITALS: BP 100/60
--- NOTE | 2017-05-30 04:22 | NUR ---
LATEST BP 100/60 AFTER THE NS 500 ML BOLUS
[2017-05-30] MEDS: GABAPENTIN 300 MG CAP PO SCH (04:31)
[2017-05-30] MEDS: HYDROcodone/APAP 7.5/325 MG 1 TAB PO PRN (04:32)
[2017-05-30] MEDS ORDERED: PANTOPRAZOLE 40 MG TABEC PO SCH (06:30)
[2017-05-30 07:05] LABS: ALBUMIN 2.2 g/dL (3.4-5.0); CARBON DIOXIDE 22.4 mmol/L (21-32); CREATININE 0.8 mg/dL (0.6-1.3); MAGNESIUM 1.7 mg/dL (1.8-2.4); PHOSPHORUS 3.9 mg/dL (2.5-4.9); POTASSIUM 4.4 mmol/L (3.5-5.1); TOTAL BILIRUBIN 0.1 mg/dL (0.0-1.0)
[2017-05-30 07:20] LABS: BASOPHILS # (AUTO) 0.2 K/uL (0.00-0.22); BASOPHILS % (AUTO) 4.2 % (0.0-2.0); EOSINOPHILS # (AUTO) 0.3 K/uL (0-0.4); EOSINOPHILS % (AUTO) 5.9 % (0.0-4.0); HEMATOCRIT 27.7 % (36-48); HEMOGLOBIN 8.5 g/dL (12.0-16.0); LYMPHOCYTES # (AUTO) 2.4 K/uL (2.5-16.5); LYMPHOCYTES % (AUTO) 45.7 % (20.5-51.1); MEAN CORPUSCULAR HEMOGLOBIN 23 pg (27-31); MEAN CORPUSCULAR HGB CONC 31 g/dL (33-37); MEAN CORPUSCULAR VOLUME 76.3 fL (80-94); MONOCYTES # (AUTO) 0.5 K/uL (0.8-1.0); MONOCYTES % (AUTO) 9.8 % (1.7-9.3); NEUTROPHILS # (AUTO) 1.8 K/uL (1.8-7.7); NEUTROPHILS % (AUTO) 34.4 % (42.2-75.2); PLATELET COUNT (AUTO) 280 K/uL (140-450); RED BLOOD CELL COUNT(AUTO) 3.63 MIL/uL (4.20-5.40); RED CELL DISTRIBUTION WIDTH 19.4 % (11.6-13.7); WHITE BLOOD COUNT (AUTO) 5.2 K/uL (4.8-10.8)
--- NOTE | 2017-05-30 07:29 | NUR ---
NO SEIZURE ACTIVITY DURING THE NIGHT. ENDORSED PT IN STABLE CONDITION TO AM NURSE.
--- NOTE | 2017-05-30 07:30 | NUR ---
RECEIVED REPORT FROM TEST ENG NURSE AT BEDSIDE FOR CONTINUITY OF CARE. PATIENT RESTLESS AND WANTS TO GO AMA. VITAL SIGNS STABLE, PATIENT ON ROOM AIR, BREATHING EVEN AND UNLABORED. PATIENT DENIES PAIN. PATIENT RESTATED HER INTENTION TO GO AMA. RN REQUEST THAT SHE STAY UNTIL SHE SPEAKS TO THE DR. PATIENT VERBALIZED UNDERSTANDING. SAFETY AND SEIZURE PRECAUTION IN PLACE, CALL LIGHT WITHIN REACH. WILL CONTINUE TO MONITOR PATIENT.
--- NOTE | 2017-05-30 07:35 | NUR ---
DR. DUGGAN IN TO SPEAK TO THE PATIENT. EXPLAINED THAT PATIENT WILL BE RISKING INJURY AND POSSIBLY IF SHE GOES AGAINST MEDICAL ADVICE. PATIENT VERBALIZED UNDERSTANDING. DR. DUGGAN REQUESTS THAT PATIENT FOLLOW UP WITH HER NEUROLOGIST. PATIENT STATED THAT "I JUST SPOKE TO HER ON THE PHONE, I ALREADY HAVE AN APPOINTMENT TO SEE HER ON FRIDAY." IV REMOVED, IV CATHETER INTACT, MINIMAL BLOOD NOTED. ID BANDS CUT. PATIENT GATHERING ALL OF HER BELONGINGS, AND WILL NOW GET DRESSED AND WAIT TO BE DISCHARGED. PATIENT STATED THAT "HER FRIEND WILL MEET HER IN FRONT OF THE HOSPITAL." Addendum: 05/30/17 at 0919 by Deniz Lorenzo RN TELE BOX REMOVED.
--- NOTE | 2017-05-30 07:40 | NUR ---
PATIENT AMBULATED OFF THE FLOOR ACCOMPANIED BY RN. PATIENT IN STABLE CONDITION. PATIENT TOOK ALL OF HER BELONGINGS WITH HER.
[2017-05-30 08:34] LABS: T4 (THYROXINE) 3.8 ug/dL (4.5-12.0)
[2017-05-30] MEDS ORDERED: levETIRAcetam 500 MG TAB PO SCH (09:00)
[2017-05-30] MEDS ORDERED: NON-FORMULARY ITEM (Esomeprazole Magnesium* (Nexium*) 40 MG) PO SCH (09:00)
== END 2017-05-30 07:40 | disposition left against medical advice (07) ==
LOC: MED 13:00 → MTU 16:18
PROVIDERS: ADMIT Family Medicine Sports Medicine; ATTEND Family Medicine Sports Medicine
DX: G40.909 Epilepsy, unspecified, not intractable, without status epilepticus (principal); G92 Toxic encephalopathy; G35 Multiple sclerosis; G47.00 Insomnia, unspecified; F41.9 Anxiety disorder, unspecified; K21.9 Gastro-esophageal reflux disease without esophagitis; E43 Unspecified severe protein-calorie malnutrition; E87.8 Other disorders of electrolyte and fluid balance, not elsewhere classified; Z95.1 Presence of aortocoronary bypass graft; F17.210 Nicotine dependence, cigarettes, uncomplicated
CPT/HCPCS: 36415; 70450; 71045; 73080; 80053; 80061; 80173; 80305; 81003; 81025; 82140; 82150; 82550; 83036; 83605; 83615; 83690; 83735; 83880; 84100; 84436; 84439; 84443; 84479; 84484; 85025; 85610; 85730; 87040; 87081; 87086; 93005; 96361; 96374; 96375; 96376; 99285; G0378; J1885; J1953; J2060; J2270; J7030; Q0092